=== PATIENT | male | born 1955 | race Caucasian/White ===

== ENCOUNTER 2019-05-20 19:30 | Emergency (ER) | payer SELFPAY ==
--- NOTE | 2019-05-20 19:38 | EDM.PDOC ---
ED HPI GENERAL MEDICAL PROBLEM - General Chief Complaint: ENT Problem Stated Complaint: CANT SWALLOW, THROAT SWOLLEN Time Seen by Provider: 05/20/19 19:36 Source of Information: Reports: Patient History Limitations: Reports: No Limitations - History of Present Illness INITIAL COMMENTS - FREE TEXT/NARRATIVE: woke up with sore throat hard to swallow, denies fever occasional cough. Throat Pain Score (Numeric/FACES): 8 - Related Data Allergies Allergy/AdvReac Type Severity Reaction Status Date / Time No Known Allergies Allergy Verified 05/20/19 19:36 Home Meds: Home Meds . [No Known Home Meds] 05/20/19 [History] ED ROS ENT - Review of Systems Review Of Systems: Comprehensive ROS is negative, except as noted in HPI. ED EXAM, ENT - Physical Exam Exam: See Below Exam Limited By: No Limitations General Appearance: Alert, WD/WN, Mild Distress, Other (discomfort) Ears: Hearing Grossly Normal Nose: Normal Inspection Mouth/Throat: Pharyngeal Erythema Head: Atraumatic Neck: Non-Tender, Full Range of Motion Respiratory/Chest: No Respiratory Distress Cardiovascular: Regular Rate, Rhythm GI/Abdominal: Soft, Non-Tender Neurological: Alert, Oriented, Normal Cognition, Normal Gait, No Motor/Sensory Deficits Psychiatric: Flat Affect Skin: Warm, Dry, Normal Color Lymphatic: No Adenopathy Course - Vital Signs Last Recorded V/S: Last Vital Signs Temp 36.9 C 05/20/19 19:40 Pulse 110 H 05/20/19 19:40 Resp 22 H 05/20/19 19:40 BP 109/96 H 05/20/19 19:40 Pulse Ox 95 05/20/19 19:40 - Orders/Labs/Meds Orders: Active Orders 24 hr Category Date Time Status CULTURE STREP A CONFIRMATION [RM] Stat Lab 05/20/19 19:34 Results STREP SCRN A RAPID W CULT CONF [RM] Stat Lab 05/20/19 19:34 Results Azithromycin [Zithromax] Med 05/20/19 20:19 Once 500 mg PO ONETIME ONE Isolation [COMM] Routine Oth 05/20/19 19:36 Active - Re-Assessments/Exams Free Text/Narrative Re-Assessment/Exam: 05/20/19 20:19 results discussed with pt. Departure - Departure Time of Disposition: 20:20 Disposition: Home, Self-Care 01 Condition: Good Clinical Impression: Tonsillopharyngitis - Discharge Information Instructions: Tonsillitis, [id number] Forms: ED Department Discharge Additional Instructions: 1) avoid solid foods and scratchy foods 2) have popsilce, jello, juice, baby foods 3) follow up at clinic rx cristi samano Sepsis Event Note - Focused Exam Vital Signs: Vital Signs Temp Pulse Resp BP Pulse Ox 05/20/19 19:40 36.9 C 110 H 22 H 109/96 H 95 Date Exam was Performed: 05/20/19 Time Exam was Performed: 20:19 - My Orders Last 24 Hours: My Active Orders 05/20/19 19:34 CULTURE STREP A CONFIRMATION [RM] Stat STREP SCRN A RAPID W CULT CONF [RM] Stat 05/20/19 19:36 Isolation [COMM] Routine 05/20/19 20:19 Azithromycin [Zithromax] 500 mg PO ONETIME ONE - Assessment/Plan Last 24 Hours: My Active Orders 05/20/19 19:34 CULTURE STREP A CONFIRMATION [RM] Stat STREP SCRN A RAPID W CULT CONF [RM] Stat 05/20/19 19:36 Isolation [COMM] Routine 05/20/19 20:19 Azithromycin [Zithromax] 500 mg PO ONETIME ONE
[2019-05-20] MEDS ORDERED: Azithromycin 250 MG Tab PO ONE (20:19)
== END 2019-05-20 20:27 | disposition home or self-care (01) ==
LOC: DL.ED 19:30
DX: J03.90 Acute tonsillitis, unspecified (principal)
CPT/HCPCS: 87081; 87430; 87804; 99283; A9270

== ENCOUNTER 2021-10-09 11:06 | Inpatient (IN) | payer BC, MEDICARE ==
[2021-10-09] MEDS ORDERED: Aspirin 81 MG Tab.Chew PO ONE (11:16)
[2021-10-09] MEDS: Sodium Chloride 0.9% 10 ML Syringe FLUSH PRN (11:24)
[2021-10-09] MEDS ORDERED: Iopamidol 755 Mg/ML 100 ML Bottle IVPUSH ONE (11:31)
[2021-10-09] MEDS ORDERED: Aspirin 81 MG Tab.Chew ONE (11:32)
[2021-10-09 11:49] LABS: ANION GAP 12.3 mEq/L (7-13)
[2021-10-09] MEDS ORDERED: Diltiazem 25 MG/5 ML SDV IVPUSH ONE (12:52)
[2021-10-09] MEDS ORDERED: Apixaban 5 MG Tab PO ONE (14:11)
[2021-10-09] MEDS ORDERED: Magnesium Hydroxide 400 MG/5 ML Susp 30 ML Cup PO PRN (15:04)
[2021-10-09] MEDS ORDERED: Ondansetron 4 MG/2 ML SDV IVPUSH PRN (15:04)
[2021-10-09] MEDS ORDERED: Acetaminophen/HYDROcodone 325-5 MG Tab PO PRN (15:04)
[2021-10-09] MEDS ORDERED: Albuterol/Ipratropium 3.0-0.5 MG/3 ML Neb Soln NEB PRN (15:04)
[2021-10-09] MEDS ORDERED: Acetaminophen 325 MG Tab PO PRN (15:04)
[2021-10-09] MEDS ORDERED: Docusate Sodium 100 MG Cap PO PRN (15:04)
[2021-10-09] MEDS ORDERED: HYDROmorphone 0.5 MG/0.5 ML Syringe IVPUSH PRN (15:04)
[2021-10-09] MEDS ORDERED: Bisacodyl 5 MG Tab PO PRN (15:04)
[2021-10-09] MEDS ORDERED: Polyethylene Glycol 3350 Powder 17 GM Packet PO PRN (15:04)
[2021-10-09] MEDS ORDERED: Zolpidem 5 MG Tab PO PRN (15:04)
[2021-10-09] MEDS ORDERED: guaiFENesin/Dextromethorphan 100-10 MG/5 ML Soln 5 ML Cup PO PRN (15:09)
[2021-10-09] MEDS ORDERED: REMDESIVIR 200 MG in Sodium Chloride 0.9% 250 ML IV ONE (15:09)
[2021-10-09] MEDS ORDERED: 50% Dextrose in Water 50 ML Syringe IVPUSH PRN (15:10)
[2021-10-09] MEDS ORDERED: Dexamethasone 6 MG TABLET PO ONE (15:10)
[2021-10-09] MEDS ORDERED: Glucagon,Human Recombinant 1 MG Vial IM PRN (15:10)
[2021-10-09] MEDS ORDERED: Metoprolol Tartrate 5 MG/5 ML SDV IVPUSH PRN (15:11)
[2021-10-09] MEDS ORDERED: hydrALAZINE 20 MG/ML SDV IVPUSH PRN (15:11)
[2021-10-09] MEDS ORDERED: Azithromycin 500 MG in Sodium Chloride 0.9% 250 ML IV ONE (15:13)
[2021-10-09] MEDS ORDERED: cefTRIAXone 1 GM in Sodium Chloride 0.9% 50 ML IV ONE (15:13)
[2021-10-09] MEDS ORDERED: Nicotine 21 MG/24 Hr Patch TRDERM PRN (15:17)
[2021-10-09] MEDS ORDERED: Diltiazem 125 MG in Sodium Chloride 0.9% 100 ML IV PRN (15:19)
[2021-10-09] MEDS ORDERED: Diltiazem 125 MG in Sodium Chloride 0.9% 100 ML IV SCH (15:30)
[2021-10-09] MEDS: Metoprolol Tartrate 25 MG Tab PO SCH (16:27)
[2021-10-09] MEDS: cefTRIAXone 1 GM in Sodium Chloride 0.9% 50 ML IV SCH (17:57)
[2021-10-09] MEDS: Insulin Lispro 100 Units/ML 3 ML Vial SUBCUT SCH (18:16)
[2021-10-09] MEDS: Azithromycin 500 MG in Sodium Chloride 0.9% 250 ML IV SCH (18:51)
[2021-10-09] MEDS ORDERED: Morphine 2 MG/ML SYRINGE IVPUSH PRN (19:10)
[2021-10-09] MEDS ORDERED: Apixaban 5 MG Tab PO SCH (21:00)
[2021-10-09] MEDS ORDERED: Heparin Sodium 5,000 Units/ML Vial IVPUSH ONE (21:00)
[2021-10-09] MEDS: Heparin Sodium/0.45% NaCl 25,000 UNITS/500 ML BAG IV SCH (21:21)
[2021-10-09 22:53] LABS: BARBITURATE SCREEN,URINE NEGATIVE (NEGATIVE); BENZODIAZEPINES SCREEN,URINE NEGATIVE (NEGATIVE); TCA SCREEN,URINE NEGATIVE (NEGATIVE)
[2021-10-10] MEDS ORDERED: Heparin Sodium 5,000 Units/ML Vial IVPUSH ONE ×3 (04:09→18:50)
[2021-10-10] MEDS ORDERED: Aspirin 81 MG Tab.Chew PO ONE (06:00)
[2021-10-10 07:31] LABS: ANION GAP 15.6 mEq/L (7-13)
[2021-10-10] MEDS: Insulin Lispro 100 Units/ML 3 ML Vial SUBCUT SCH ×3 (08:05→16:53)
[2021-10-10] MEDS: Metoprolol Tartrate 25 MG Tab PO SCH ×2 (08:22→21:24)
[2021-10-10] MEDS: Dexamethasone 6 MG TABLET PO SCH (08:22)
[2021-10-10] MEDS ORDERED: Furosemide 20 MG/2 ML VIAL IVPUSH ONE (09:45)
[2021-10-10] MEDS: Heparin Sodium/0.45% NaCl 25,000 UNITS/500 ML BAG IV SCH (16:52)
[2021-10-10] MEDS: cefTRIAXone 1 GM in Sodium Chloride 0.9% 50 ML IV SCH ×2 (16:52→17:33)
[2021-10-10] MEDS: Azithromycin 500 MG in Sodium Chloride 0.9% 250 ML IV SCH (17:30)
[2021-10-10] MEDS ORDERED: Azithromycin 500 MG in Sodium Chloride 0.9% 250 ML IV SCH (21:00)
[2021-10-10] MEDS ORDERED: cefTRIAXone 1 GM in Sodium Chloride 0.9% 50 ML IV SCH (21:00)
[2021-10-10] MEDS: REMDESIVIR 100 MG in Sodium Chloride 0.9% 100 ML IV SCH (21:19)
[2021-10-11 07:40] LABS: ANION GAP 14.6 mEq/L (7-13)
[2021-10-11] MEDS: Insulin Lispro 100 Units/ML 3 ML Vial SUBCUT SCH ×3 (08:01→16:52)
[2021-10-11] MEDS: Furosemide 40 MG Tab PO SCH (08:18)
[2021-10-11] MEDS: Metoprolol Tartrate 25 MG Tab PO SCH ×2 (08:18→21:20)
[2021-10-11] MEDS: Dexamethasone 6 MG TABLET PO SCH (08:18)
[2021-10-11] MEDS: Heparin Sodium/0.45% NaCl 25,000 UNITS/500 ML BAG IV SCH (10:29)
[2021-10-11] MEDS: cefTRIAXone 1 GM in Sodium Chloride 0.9% 50 ML IV SCH ×2 (16:53→17:13)
[2021-10-11] MEDS: Azithromycin 500 MG in Sodium Chloride 0.9% 250 ML IV SCH ×2 (17:27→17:41)
[2021-10-11] MEDS: REMDESIVIR 100 MG in Sodium Chloride 0.9% 100 ML IV SCH (21:17)
[2021-10-12 07:25] LABS: ANION GAP 13.5 mEq/L (7-13)
[2021-10-12] MEDS: Insulin Lispro 100 Units/ML 3 ML Vial SUBCUT SCH ×3 (08:26→17:11)
[2021-10-12] MEDS: Metoprolol Tartrate 25 MG Tab PO SCH ×2 (08:36→20:32)
[2021-10-12] MEDS: Furosemide 40 MG Tab PO SCH (08:36)
[2021-10-12] MEDS: Dexamethasone 6 MG TABLET PO SCH (08:38)
[2021-10-12] MEDS ORDERED: Losartan 25 MG Tab PO SCH (11:30)
[2021-10-12] MEDS: cefTRIAXone 1 GM in Sodium Chloride 0.9% 50 ML IV SCH (17:09)
[2021-10-12] MEDS: Azithromycin 500 MG in Sodium Chloride 0.9% 250 ML IV SCH (17:46)
[2021-10-12 19:02] LABS: ANION GAP 14.8 mEq/L (7-13)
[2021-10-12] MEDS: REMDESIVIR 100 MG in Sodium Chloride 0.9% 100 ML IV SCH (20:34)
[2021-10-13 06:53] LABS: ANION GAP 13.6 mEq/L (7-13)
[2021-10-13] MEDS: Insulin Lispro 100 Units/ML 3 ML Vial SUBCUT SCH ×2 (07:57→12:57)
[2021-10-13] MEDS: Metoprolol Tartrate 25 MG Tab PO SCH (08:27)
[2021-10-13] MEDS: Dexamethasone 6 MG TABLET PO SCH (08:28)
[2021-10-13] MEDS: Sodium Chloride 0.9% 10 ML Syringe FLUSH PRN (08:28)
[2021-10-13] MEDS: Furosemide 40 MG Tab PO SCH (08:28)
[2021-10-13] MEDS ORDERED: REMDESIVIR 100 MG in Sodium Chloride 0.9% 100 ML IV SCH (09:00)
[2021-10-13] MEDS ORDERED: Losartan 25 MG Tab PO SCH (09:00)
[2021-10-13] MEDS ORDERED: Metoprolol Tartrate 25 MG Tab ONE (10:45)
[2021-10-13] MEDS ORDERED: Metoprolol Tartrate 25 MG Tab PO ONE (12:19)
== END 2021-10-13 12:20 | disposition home or self-care (01) | DRG 137 ==
LOC: DL.ED 11:06 → DL.MS 14:55
PROVIDERS: ADMIT Internal Medicine; ATTEND Internal Medicine
PROC: XW033E5 Introduction of Remdesivir Anti-infective into Peripheral Vein, Percutaneous Approach, New Technology Group 5 (ICD-10-PCS; principal; 2021-10-09)
PROC: 3E0DX3Z Introduction of Anti-inflammatory into Mouth and Pharynx, External Approach (ICD-10-PCS; 2021-10-09)
DX: U07.1 COVID-19 (principal); J12.82 Pneumonia due to coronavirus disease 2019; I21.4 Non-ST elevation (NSTEMI) myocardial infarction; F17.210 Nicotine dependence, cigarettes, uncomplicated; E66.9 Obesity, unspecified; J90 Pleural effusion, not elsewhere classified; I50.9 Heart failure, unspecified; J15.9 Unspecified bacterial pneumonia; J84.10 Pulmonary fibrosis, unspecified; Z79.82 Long term (current) use of aspirin; Z68.31 Body mass index [BMI] 31.0-31.9, adult; Z28.310 Unvaccinated for COVID-19; Z79.899 Other long term (current) drug therapy; Z28.82 Immunization not carried out because of caregiver refusal
CPT/HCPCS: 36415; 71045; 71260; 80048; 80053; 80061; 80305-QW; 82248; 82947; 83036; 83735; 83880; 84439; 84443; 84484; 85025; 85610; 85730; 86140; 93005; 93010; 94010; 96374; 99284; 99285-25; A9270-GY; J0456; J0696; J1644; J1815-GY; J1940; J3490; J7050; J8540; Q9967; U0002